=== PATIENT | female | born 1970 | race Caucasian/White ===

== ENCOUNTER 2016-11-16 14:12 | Inpatient (IN) | payer OTHER ==
[~2016-11-16] VITALS: Ht 165.1 cm; Wt 99.7 kg
[2016-11-29] MEDS ORDERED: SYMB160A INH (08:46)
[2016-11-29] MEDS ORDERED: HYDR25TA5 PO (08:46)
[2016-11-29] MEDS ORDERED: CYCL1TAB29 PO (08:46)
[2016-11-29] MEDS ORDERED: MULT1TAB17 PO (08:46)
[2016-11-29] MEDS ORDERED: FLUO40CA PO (08:46)
[2016-11-29] MEDS ORDERED: FLUO20CA12 PO (08:46)
[2016-11-29] MEDS ORDERED: MELO-1 PO (08:46)
[2016-11-29] MEDS ORDERED: CLAR10CA3 PO (08:46)
[2016-11-29] MEDS ORDERED: CITRTAB16 P-ARTICULR (08:46)
[2016-11-29] MEDS ORDERED: SENN1TAB PO (08:46)
[2016-11-29] MEDS ORDERED: LIPI10TA PO (08:46)
[2016-11-29] MEDS ORDERED: OMEP40CA2 PO (08:46)
[2016-12-05] MEDS ORDERED: ONDANSETRON HCL 4 MG/2 ML VIAL IV PUSH ONE (12:00)
[2016-12-05] MEDS ORDERED: PROPOFOL 200 MG/20 ML AMP IV ONE (12:00)
[2016-12-05] MEDS ORDERED: LACTATED RINGER'S 1000 ML INJ 1,000 ML IV ONE (12:00)
--- NOTE | 2016-12-05 12:53 | PD.HP.UP ---
H&P Update Note The Pre-Admit History and Physical Examination regarding the above named patient was reviewed (including, but not limited to, vital signs, heart, lungs, co-morbid conditions), and upon re-examination it is noted that: the patient's condition has not significantly changed since the last examination. James Stone MD Dec 05, 2016 12:53
[2016-12-05 13:42] VITALS: BP 152/99; PULSE 96; RESP 20; TEMP 98.2; O2SAT 93
[2016-12-05] MEDS ORDERED: ALVIMOPAN 12 MG CAPSULE - On Call PO SCH (14:30)
[2016-12-05] MEDS ORDERED: SODIUM CHLORIDE 0.9% INJ 100 ML ONE (14:53)
[2016-12-05] MEDS ORDERED: LACTATED RINGER'S 1000 ML IV PRN (15:00)
[2016-12-05] MEDS ORDERED: SODIUM CHLORID 0.9% 500 ML IV PRN (15:00)
[2016-12-05] MEDS ORDERED: METOPROLOL TARTRATE 25 MG TAB PO PRN (15:00)
[2016-12-05] MEDS ORDERED: POVIDONE IODINE 5% (ANTISEPSIS KIT) 4 APPLICATIONS EACH NARE PRN (15:00)
[2016-12-05] MEDS ORDERED: INSULIN HUMAN REGULAR 1,000 UNITS/10 ML VIAL SQ PRN (15:00)
[2016-12-05] MEDS ORDERED: CHLORHEXIDINE GLUCONATE 2 % 1 PACK (2 CLOTHS) TOPICAL PRN (15:00)
[2016-12-05] MEDS ORDERED: ceFAZolin INJ 1,000 MG VIAL IV ONE ×2 (15:15→16:00)
[2016-12-05] MEDS ORDERED: metroNIDAZOLE 500 MG INJ 100 ML IV ONE (16:00)
[2016-12-05] MEDS ORDERED: BUPIVACAINE HCL PF 0.5% 30 ML VIAL ONE (16:00)
[2016-12-05] MEDS ORDERED: DEXT 5%-NACL 0.9% 1000 ML INJ 1,000 ML IV ONE (16:00)
[2016-12-05] MEDS ORDERED: LIDOCAINE 1%/EPINEPHrine 1:100,000 SOLN 20 ML VIAL ONE ×2 (16:01)
[2016-12-05] MEDS ORDERED: SUGAMMADEX SODIUM 200 MG/2 ML VIAL IV PUSH ONE ×2 (17:44)
[2016-12-05] MEDS ORDERED: POTASSIUM CHLOR 40 MEQ PREMIX 100 ML IV PRN (18:00)
[2016-12-05] MEDS ORDERED: ENALAPRILAT 2.5 MG/2 ML VIAL IV PRN (18:00)
[2016-12-05] MEDS ORDERED: ACETAMINOPHEN 325 MG TAB PO PRN (18:00)
[2016-12-05] MEDS ORDERED: ENALAPRILAT 1.25 MG/ML VIAL IV PRN (18:00)
[2016-12-05] MEDS ORDERED: BENZOCAINE 6 MG/MENTHOL 10 MG LOZENGE BUCCAL PRN (18:00)
[2016-12-05] MEDS ORDERED: Post-op Orders (for Pharmacy) MISC XX ONE (18:00)
[2016-12-05] MEDS ORDERED: POTASSIUM CHLOR 20 MEQ PREMIX 100 ML IV PRN (18:00)
[2016-12-05] MEDS ORDERED: SODIUM CHLORIDE 0.9% FLUSH 5 ML FLUSH IVF PRN (18:00)
[2016-12-05] MEDS ORDERED: NALOXONE HCL 0.4 MG/ML AMP IV PRN (18:00)
--- NOTE | 2016-12-05 18:07 | HHI.PR ---
Immediate Post Op Note Procedure Date: Dec 05, 2016 Pre Op Diagnosis: Rectal prolapse Post Op Diagnosis: same Surgeon: James Stone Economist Research Assistant(s): Aislinn Procedure: Exploratory lap + rectopexy Findings: deep cul de sac, mild sigm loop uterus absent Lt ovarian cyst, nl appy Complications: none Specimen(s) removed: none Estimated blood loss: 50cc Anesthesia: General Drains: None IVF Patient to: PACU Patient Condition: Good James Stone MD Dec 05, 2016 18:07
[2016-12-05] MEDS ORDERED: *morphine SULFATE 8 MG/ML PERIprocedure ONLY ONE ×2 (18:18→18:29)
[2016-12-05] MEDS ORDERED: fentaNYL CITRATE 250 MCG/5 ML AMP ONE (18:18)
[2016-12-05] MEDS ORDERED: MIDAZOLAM HCL 2 MG/2 ML VIAL ONE (18:19)
[2016-12-05] MEDS ORDERED: *MEPERIDINE 25 MG INJ VIAL PERIprocedural Use ONLY ONE (18:36)
[2016-12-05] MEDS: D5-NS + KCL 20 MEQ INJ 1,000 ML IV SCH ×2 (18:45→23:55)
[2016-12-05] MEDS: MORPHINE SULFATE 30 MG/30 ML PCA IV SCH (18:55)
[2016-12-05] MEDS ORDERED: DO NOT ADM ANY ANTICOAGULANT DRUGS PRN (20:15)
[2016-12-05 21:09] VITALS: BP 133/86; PULSE 107; RESP 17; TEMP 95.7; O2SAT 94
[2016-12-05 21:28] VITALS: RESP 18
[2016-12-05] MEDS: FLUoxetine HCL 20 MG CAP PO SCH (21:35)
[2016-12-05] MEDS: ATORVASTATIN 10 MG TAB PO SCH (21:35)
[2016-12-05] MEDS: METOCLOPRAMIDE HCL 10 MG/2 ML VIAL IVS SCH (21:36)
[2016-12-05] MEDS: SODIUM CHLORIDE 0.9% FLUSH 5 ML FLUSH IVF SCH (21:37)
[2016-12-05] MEDS: PCA - TOTAL MG MORPHINE DELIVERED PER SHIFT SCH (22:00)
[2016-12-05 22:36] VITALS: PULSE 101
[2016-12-05] MEDS: metroNIDAZOLE 500 MG INJ 100 ML IV SCH (23:55)
[2016-12-06] VITALS (9 sets, daily range): BP systolic 115–130; BP diastolic 70–87; PULSE 91–112; RESP 17–20; TEMP 96–98.5; O2SAT 92–97
[2016-12-06] MEDS: ONDANSETRON HCL 4 MG/2 ML VIAL IV PRN ×2 (02:57→08:03)
[2016-12-06] MEDS: KETOROLAC TROMETHAMINE 30 MG/ML (IVP) VIAL IVP PRN ×2 (02:58→08:03)
[2016-12-06 05:44] LABS: AUTOMATED NEUTROPHIL # 9.9 TH/MM3 (1.8-7.7); BASOPHIL % 0.2 % (0.0-2.0); EOSINOPHIL # 0.1 TH/MM3 (0-0.4); EOSINOPHIL % 0.7 % (0.0-4.0); HEMATOCRIT 36.1 % (35.0-46.0); HEMO FLAGS DIFF FINAL; LYMPHOCYTE # 0.3 TH/MM3 (1.0-4.8); MEAN CELL VOLUME 85.4 FL (80.0-100.0); MEAN CORPUSCULAR HEMOGLOBIN 27.4 PG (27.0-34.0); MONO % 4.6 % (0.0-8.0); NEUT % 91.5 % (16.0-70.0); PLATELET COUNT 262 TH/MM3 (150-450); RED BLOOD COUNT 4.22 MIL/MM3 (4.00-5.30); RED CELL DISTRIBUTION WIDTH 16.2 % (11.6-17.2); WHITE BLOOD COUNT 10.9 TH/MM3 (4.0-11.0)
[2016-12-06] MEDS: metroNIDAZOLE 500 MG INJ 100 ML IV SCH ×2 (06:00→15:17)
[2016-12-06] MEDS: PCA - TOTAL MG MORPHINE DELIVERED PER SHIFT SCH ×3 (06:00→21:03)
[2016-12-06 06:08] LABS: BICARBONATE 28.5 MEQ/L (21.0-32.0); POTASSIUM 3.9 MEQ/L (3.5-5.1)
[2016-12-06] MEDS: SODIUM CHLORIDE 0.9% FLUSH 5 ML FLUSH IVF SCH ×2 (07:50→21:00)
[2016-12-06] MEDS: METOCLOPRAMIDE HCL 10 MG/2 ML VIAL IVS SCH ×2 (08:03→21:01)
[2016-12-06] MEDS: MELOXICAM 15 MG TAB PO SCH (08:03)
[2016-12-06] MEDS: HYDROCHLOROTHIAZIDE 25 MG TAB PO SCH (08:04)
[2016-12-06] MEDS: PANTOPRAZOLE SODIUM 40 MG VIAL IVP SCH (08:04)
[2016-12-06] MEDS: LORATADINE 10 MG TAB PO SCH (08:04)
[2016-12-06] MEDS: ALVIMOPAN 12 MG CAPSULE PO SCH ×2 (08:04→21:00)
[2016-12-06] MEDS: PANTOPRAZOLE SOD 40 MG DELAYED RELEASE TAB PO SCH (08:04)
[2016-12-06] MEDS: FLUoxetine HCL 20 MG CAP PO SCH ×2 (08:04→21:00)
[2016-12-06] MEDS: CYCLOBENZAPRINE HCL 10 MG TAB PO SCH (08:04)
[2016-12-06] MEDS: D5-NS + KCL 20 MEQ INJ 1,000 ML IV SCH ×4 (08:05→23:59)
[2016-12-06] MEDS: BUDESONIDE-FORMOTEROL 160/4.5 MCG INHALER INH SCH (08:26)
[2016-12-06] MEDS ORDERED: ALVIMOPAN 12 MG CAPSULE - Post-op dosing PO SCH (09:00)
[2016-12-06] MEDS ORDERED: FUROSEMIDE 20 MG/2 ML VIAL IV PUSH ONE (11:30)
--- NOTE | 2016-12-06 13:46 | HHI.PR ---
Subjective Remarks C/R Surg POD #1 afebrile, VSS UO fair +belching Objective - Vital Signs Date Time Temp Pulse Resp B/P Pulse Ox O2 Delivery O2 Flow Rate FiO2 12/06/16 12:00 98.4 98 18 115/71 94 12/06/16 08:00 21 12/05/16 21:00 Nasal Cannula 2 Result Diagram: 12/06/16 0505 12/06/16 0505 Objective Remarks PE alert Abd - soft, wound dry, min tympany A/P Assessment and Plan Imp: stable post-op OOB decr IVF slow PO dc James Gonzalez MD Dec 06, 2016 13:46
[2016-12-06] MEDS: MORPHINE SULFATE 30 MG/30 ML PCA IV SCH (15:24)
[2016-12-06] MEDS: ATORVASTATIN 10 MG TAB PO SCH (21:00)
[2016-12-07] VITALS: BP 136/79; PULSE 107; RESP 20; TEMP 97.9; O2SAT 96
[2016-12-07 04:00] VITALS: BP 132/83; PULSE 103; RESP 20; TEMP 97.5; O2SAT 96
[2016-12-07] MEDS: D5-NS + KCL 20 MEQ INJ 1,000 ML IV SCH ×2 (05:29→16:28)
[2016-12-07] MEDS: PCA - TOTAL MG MORPHINE DELIVERED PER SHIFT SCH (05:30)
[2016-12-07] MEDS: MORPHINE SULFATE 30 MG/30 ML PCA IV SCH (07:10)
[2016-12-07 07:46] LABS: AUTOMATED NEUTROPHIL # 7.5 TH/MM3 (1.8-7.7); BASOPHIL % 0.1 % (0.0-2.0); EOSINOPHIL # 0.4 TH/MM3 (0-0.4); EOSINOPHIL % 3.8 % (0.0-4.0); HEMO FLAGS DIFF FINAL; LYMPH % 13.1 % (9.0-44.0); LYMPHOCYTE # 1.3 TH/MM3 (1.0-4.8); MEAN CELL VOLUME 86.5 FL (80.0-100.0); MEAN CORPUSCULAR HEMOGLOBIN 27.9 PG (27.0-34.0); MEAN CORPUSCULAR HGB CONC 32.2 % (32.0-36.0); MONO % 4.8 % (0.0-8.0); NEUT % 78.2 % (16.0-70.0); PLATELET COUNT 245 TH/MM3 (150-450); RED CELL DISTRIBUTION WIDTH 16.2 % (11.6-17.2); WHITE BLOOD COUNT 9.6 TH/MM3 (4.0-11.0)
[2016-12-07 07:55] LABS: BICARBONATE 27.1 MEQ/L (21.0-32.0); POTASSIUM 3.5 MEQ/L (3.5-5.1)
[2016-12-07 08:00] VITALS: BP 128/92; PULSE 100; RESP 17; TEMP 97.7; O2SAT 95
--- NOTE | 2016-12-07 08:18 | HHI.PR ---
Subjective Remarks C/R Surg POD #2 afebrile, VSS UO fair haydee liq Objective - Vital Signs Date Time Temp Pulse Resp B/P Pulse Ox O2 Delivery O2 Flow Rate FiO2 12/07/16 07:10 18 12/07/16 04:00 97.5 103 132/83 96 12/06/16 15:32 21 12/05/16 21:00 Nasal Cannula 2 Result Diagram: 12/07/16 0658 12/07/16 0658 Objective Remarks PE alert Abd - soft, wound dry, min tympany A/P Assessment and Plan Imp: OOB decr IVF slow PO James Stone MD Dec 07, 2016 08:18
[2016-12-07] MEDS: MELOXICAM 15 MG TAB PO SCH (08:25)
[2016-12-07] MEDS: ALVIMOPAN 12 MG CAPSULE PO SCH ×2 (08:25→22:16)
[2016-12-07] MEDS: FLUoxetine HCL 20 MG CAP PO SCH ×2 (08:26→22:18)
[2016-12-07] MEDS: PANTOPRAZOLE SOD 40 MG DELAYED RELEASE TAB PO SCH (08:26)
[2016-12-07] MEDS: LORATADINE 10 MG TAB PO SCH (08:26)
[2016-12-07] MEDS: CYCLOBENZAPRINE HCL 10 MG TAB PO SCH (08:26)
[2016-12-07] MEDS: PANTOPRAZOLE SODIUM 40 MG VIAL IVP SCH (08:26)
[2016-12-07] MEDS: HYDROCHLOROTHIAZIDE 25 MG TAB PO SCH (08:26)
[2016-12-07] MEDS: SODIUM CHLORIDE 0.9% FLUSH 5 ML FLUSH IVF SCH ×2 (08:27→21:00)
[2016-12-07] MEDS: METOCLOPRAMIDE HCL 10 MG/2 ML VIAL IVS SCH ×2 (08:27→22:16)
[2016-12-07] MEDS: BUDESONIDE-FORMOTEROL 160/4.5 MCG INHALER INH SCH (08:28)
[2016-12-07] MEDS: ACETAMINOPHEN/HYDROcodone 325 MG/5 MG TAB PO PRN ×3 (10:37→22:15)
[2016-12-07 12:00] VITALS: BP 128/75; PULSE 107; RESP 16; TEMP 97.9; O2SAT 93
--- NOTE | 2016-12-07 13:25 | MP ---
cc: ELLIS WEINBERG M.D. DATE OF SURGERY December 05, 2016 PREOPERATIVE DIAGNOSIS Rectal prolapse. PROCEDURE Exploratory laparotomy with rectopexy. POSTOPERATIVE DIAGNOSIS Rectal prolapse. SURGEON Dr. Weinberg [employer] SERVICE MANAGER Dr. Jeet Tao PROCEDURE The patient was placed in the supine position. After adequate general anesthesia her legs were placed in the [place] stirrups and supported appropriately. The abdomen and perineum were then prepped with Betadine solution and draped in the usual sterile fashion. With Dr. Tao's assistance the abdomen was opened through a midline incision. Upon entering the abdominal cavity some adhesions to the parietal peritoneum were taken down. Exploration revealed a very deep cul-de-sac with the uterus being surgically absent. Both ovaries were present and appropriate for the patient's age with some small cysts present. The sigmoid colon was somewhat redundant but did not have excessive sigmoid loop. The small bowel was run from the ligament of Treitz down to the ileocecal valve and felt to be pretty unremarkable. Initially the sigmoid colon was mobilized medially by dividing along the white line of Toldt. The left ureter was identified and carefully preserved. The right retroperitoneal space was then opened and the right ureter identified and preserved. Dissection then proceeded mobilizing the bowel off the presacral fascia down toward the pelvic floor. The pelvic dissection went as far down as pelvic floor muscles due to the redundancy and appeared to be some prolapse very distal in the rectal segment. The cul-de-sac was opened and the bowel mobilized up until it could be straightened sufficiently for a rectopexy. After complete mobilization, the rectopexy was performed with two interrupted Prolene sutures through the mesentery on each side of the rectosigmoid pexing it to the presacral fascia at the pelvic inlet. At completion, there appeared to be adequate tension on the prolapse and the lumen of the sigmoid was not compromised. The abdomen was then irrigated copiously with normal saline. Adequate hemostasis achieved. The midline incision was closed anatomically using a running #1 PDS suture to reapproximate the midline fascia. The subcu tissue was irrigated copiously and the skin closed with a running subcuticular Vicryl suture. The wound area was washed with normal saline and dried, sterile dressing of Telfa and gauze applied. The patient tolerated the procedure quite well and was brought to the recovery room in stable condition. Sponge and needle counts were correct at the end of the procedure. MD SANGEETA Johansen/MARCIAL /9:45 PM /1:17 PM
[2016-12-07 16:00] VITALS: BP 118/74; PULSE 106; RESP 17; TEMP 97.2; O2SAT 95
[2016-12-07 20:21] VITALS: BP 146/86; PULSE 100; RESP 17; TEMP 97.3; O2SAT 97
[2016-12-07] MEDS: ATORVASTATIN 10 MG TAB PO SCH (22:16)
[2016-12-08 00:31] VITALS: BP 131/76; PULSE 82; RESP 16; TEMP 98.7; O2SAT 93
[2016-12-08] MEDS: ACETAMINOPHEN/HYDROcodone 325 MG/5 MG TAB PO PRN ×4 (04:20→18:28)
[2016-12-08 08:00] VITALS: BP 125/78; PULSE 87; RESP 16; TEMP 96.8; O2SAT 92
[2016-12-08] MEDS: ALVIMOPAN 12 MG CAPSULE PO SCH ×2 (08:37→21:09)
[2016-12-08] MEDS: PANTOPRAZOLE SOD 40 MG DELAYED RELEASE TAB PO SCH ×2 (08:37→21:09)
[2016-12-08] MEDS: FLUoxetine HCL 20 MG CAP PO SCH ×2 (08:37→21:09)
[2016-12-08] MEDS: LORATADINE 10 MG TAB PO SCH (08:38)
[2016-12-08] MEDS: CYCLOBENZAPRINE HCL 10 MG TAB PO SCH (08:38)
[2016-12-08] MEDS: HYDROCHLOROTHIAZIDE 25 MG TAB PO SCH (08:38)
[2016-12-08] MEDS: MELOXICAM 15 MG TAB PO SCH (08:38)
[2016-12-08] MEDS: METOCLOPRAMIDE HCL 10 MG/2 ML VIAL IVS SCH ×2 (08:39→21:08)
[2016-12-08] MEDS: PANTOPRAZOLE SODIUM 40 MG VIAL IVP SCH (08:39)
[2016-12-08] MEDS: SODIUM CHLORIDE 0.9% FLUSH 5 ML FLUSH IVF SCH ×2 (08:40→21:00)
[2016-12-08] MEDS: BUDESONIDE-FORMOTEROL 160/4.5 MCG INHALER INH SCH (08:40)
[2016-12-08] MEDS: DOCUSATE SODIUM 50 MG/SENNA 8.6 MG TAB PO SCH (11:35)
[2016-12-08 12:00] VITALS: BP 117/75; PULSE 94; RESP 17; TEMP 96.8; O2SAT 94
[2016-12-08] MEDS: D5-NS + KCL 20 MEQ INJ 1,000 ML IV SCH (15:30)
[2016-12-08 16:00] VITALS: BP 129/79; PULSE 100; RESP 18; TEMP 97.6; O2SAT 95
[2016-12-08] MEDS: KETOROLAC TROMETHAMINE 30 MG/ML (IVP) VIAL IVP PRN (17:09)
[2016-12-08] MEDS ORDERED: HYDR-3516 PO (17:27)
[2016-12-08] MEDS: POLYETHYLENE GLYCOL 17 GM PKG PO SCH (17:30)
--- NOTE | 2016-12-08 18:06 | HHI.PR ---
Subjective Remarks C/R Surg POD #3 afebrile, VSS UO fair haydee liq/diet +flatus Objective - Vital Signs Date Time Temp Pulse Resp B/P Pulse Ox O2 Delivery O2 Flow Rate FiO2 12/08/16 16:00 97.6 100 18 129/79 95 12/06/16 15:32 21 12/05/16 21:00 Nasal Cannula 2 Result Diagram: 12/07/1658 12/07/16 0658 Objective Remarks PE alert Abd - soft, wound dry, min tympany A/P Assessment and Plan Imp: OOB decr IVF slow PO, adv dc plans James Stone MD Dec 08, 2016 18:06
[2016-12-08 20:09] VITALS: BP 130/68; PULSE 79; RESP 18; TEMP 98; O2SAT 97
[2016-12-08] MEDS: ATORVASTATIN 10 MG TAB PO SCH (21:09)
[2016-12-09 00:21] VITALS: BP 129/80; PULSE 88; RESP 18; TEMP 97.1; O2SAT 96
[2016-12-09] MEDS: D5-NS + KCL 20 MEQ INJ 1,000 ML IV SCH (01:48)
[2016-12-09] MEDS: ACETAMINOPHEN/HYDROcodone 325 MG/5 MG TAB PO PRN (06:30)
[2016-12-09 08:00] VITALS: BP 136/89; PULSE 84; RESP 17; TEMP 97.7; O2SAT 94
[2016-12-09] MEDS: FLUoxetine HCL 20 MG CAP PO SCH (08:59)
[2016-12-09] MEDS: PANTOPRAZOLE SOD 40 MG DELAYED RELEASE TAB PO SCH (08:59)
[2016-12-09] MEDS: CYCLOBENZAPRINE HCL 10 MG TAB PO SCH (08:59)
[2016-12-09] MEDS: ALVIMOPAN 12 MG CAPSULE PO SCH (08:59)
[2016-12-09] MEDS: LORATADINE 10 MG TAB PO SCH (08:59)
[2016-12-09] MEDS: MELOXICAM 15 MG TAB PO SCH (08:59)
[2016-12-09] MEDS: HYDROCHLOROTHIAZIDE 25 MG TAB PO SCH (08:59)
[2016-12-09] MEDS: PANTOPRAZOLE SODIUM 40 MG VIAL IVP SCH (08:59)
[2016-12-09] MEDS: POLYETHYLENE GLYCOL 17 GM PKG PO SCH (09:00)
[2016-12-09] MEDS: BUDESONIDE-FORMOTEROL 160/4.5 MCG INHALER INH SCH (09:00)
[2016-12-09] MEDS: SODIUM CHLORIDE 0.9% FLUSH 5 ML FLUSH IVF SCH (09:00)
[2016-12-09] MEDS: METOCLOPRAMIDE HCL 10 MG/2 ML VIAL IVS SCH (09:00)
[2016-12-09] MEDS: DOCUSATE SODIUM 50 MG/SENNA 8.6 MG TAB PO SCH (09:00)
--- NOTE | 2016-12-09 10:54 | HHI.PR ---
Subjective Remarks POD#4 s/p rectopexy for prolapse, chronic constipation Gassy with MiraLax Objective Vital Signs Date Time Temp Pulse Resp B/P Pulse Ox O2 Delivery O2 Flow Rate FiO2 12/09/16 08:00 97.7 84 17 136/89 94 12/09/16 00:21 97.1 88 18 129/80 96 12/08/16 20:09 98.0 79 18 130/68 97 12/08/16 16:00 97.6 100 18 129/79 95 12/08/16 12:00 96.8 94 17 117/75 94 I/O 12/08/16 12/08/16 12/08/16 12/09/16 12/09/16 12/09/16 06:59 14:59 22:59 06:59 14:59 22:59 Intake Total 774 ml 1411 ml 380 ml 480 ml Balance 774 ml 1411 ml 380 ml 480 ml Intake Oral 380 ml 720 ml 380 ml 480 ml IV Total 394 ml 691 ml 0 ml # Voids 2 6 2 2 # Bowel Movements 0 Result Diagram: 12/07/16 0658 12/07/16 0658 Objective Remarks Abdomen soft, distended, tender Wound clean Assessment and Plan Assessment and Plan Doing well Home today Followup with Dr. Stone 2 weeks Gabby Montes De Oca MD Dec 09, 2016 10:54
== END 2016-12-09 12:18 | disposition home or self-care (01) | DRG 331 ==
LOC: HSDI 12-05 12:38 → N07B 12-05 21:08
PROVIDERS: ADMIT Colon & Rectal Surgery; ATTEND Colon & Rectal Surgery
PROC: 0DSP0ZZ Reposition Rectum, Open Approach (ICD-10-PCS; principal; 2016-12-05 16:10)
DX: K62.3 Rectal prolapse (principal); I10 Essential (primary) hypertension; E78.5 Hyperlipidemia, unspecified; J44.9 Chronic obstructive pulmonary disease, unspecified; F17.210 Nicotine dependence, cigarettes, uncomplicated; K21.9 Gastro-esophageal reflux disease without esophagitis; Z90.710 Acquired absence of both cervix and uterus; K59.09 Other constipation
CPT/HCPCS: 80048; 85025; 86850; 86900; 86901; 94150; J0690; J1885; J1940; J2175; J2250; J2270; J2405; J2765; J3010; J3480; J7120

== ENCOUNTER → 2016-11-29 | Outpatient (CLI) | payer OTHER ==
[~2016-11-29] MED LIST: AUGM875T PO; CITRTAB16 P-ARTICULR; CLAR10CA3 PO; CYCL1TAB29 PO; FLUO20CA12 PO; FLUO40CA PO; HYDR-3516 PO; HYDR-3533 PO; HYDR25TA5 PO; IBUP800T23 PO; LIPI10TA PO; MELO-1 PO; MULT1TAB17 PO; OMEP40CA2 PO; PRED20 PO; SENN1TAB PO; SYMB160A INH
--- NOTE | 2016-11-29 11:52 | RADRPT ---
EXAM DATE/TIME: 11/29/2016 09:25 [place] COMPARISON: No previous studies available for comparison. INDICATIONS : Pre op rectal surgery. Evaluate for pneumothorax, pneumonia, and other communicable diseases. Patient is a smoker. MEDICAL HISTORY : Chronic obstructive pulmonary disease. Hypertension SURGICAL HISTORY : None. ENCOUNTER: Initial ACUITY: 1 day PAIN SCORE: 0/10 LOCATION: Bilateral chest FINDINGS: PA and lateral views of the chest demonstrate the lungs to be symmetrically aerated without evidence of mass, infiltrate or effusion. The cardiomediastinal contours are unremarkable. Osseous structure s are intact. CONCLUSION: 1. No acute cardiopulmonary disease. Joseph Fletcher MD on November 29, 2016 at 11:50 Board Certified Radiologist. This report was verified electronically.
== END ==
LOC: CPRE 08:21
PROVIDERS: ATTEND Colon & Rectal Surgery
DX: Z01.811 Encounter for preprocedural respiratory examination (principal); R10.2 Pelvic and perineal pain; I10 Essential (primary) hypertension; J44.9 Chronic obstructive pulmonary disease, unspecified
CPT/HCPCS: 71020